=== PATIENT | female | born 1935 | race Two or more races ===

== ENCOUNTER 2017-09-27 10:25 | Outpatient (CLI) | payer OTHER ==
[~2017-09-27 10:25] MED LIST: CLOPIDOGREL BIS75 MG PO; ENALAPRIL MALEAT5 MG PO; GABAPENTIN400 MG PO; GLYCOPYRROLATE2 MG PO; LANSOPRAZOLE30 MG PO; OSTERA TABLET1 EACH PO; TOPROL XL25 M1 PO; ZOCOR40 MG PO; [UNRECOGNIZED DRUG - OTHER] PO
== END 2017-09-27 10:34 | disposition home or self-care (01) ==
LOC: RAD 10:25
DX: R07.89 Other chest pain (principal); M25.561 Pain in right knee; M25.562 Pain in left knee

== ENCOUNTER → 2017-10-13 | Outpatient (CLI) | payer OTHER ==
[~2017-10-13] VITALS: Ht 152.4 cm; Wt 59.0 kg
[~2017-10-13] MED LIST changes: +CALTRATE 600+D1 EAC1 PO; +COZAAR50 MG; +GLUCOSAMI PO; +PLAVIX75 MG PO; +PREVACID15 MG PO; +ROBINUL FORTE2 MG PO
== END | disposition home or self-care (01) ==
LOC: LAB 06:00 → SURH 10-24 07:00 → EDSTATUS 10-24 08:00 → SURH 10-24 08:00
DX: M25.561 Pain in right knee (principal); D64.89 Other specified anemias; D68.8 Other specified coagulation defects; E78.2 Mixed hyperlipidemia; N39.0 Urinary tract infection, site not specified; I10 Essential (primary) hypertension; Z01.810 Encounter for preprocedural cardiovascular examination; Z01.812 Encounter for preprocedural laboratory examination

== ENCOUNTER 2017-10-18 15:33 | Outpatient (CLI) | payer OTHER ==
[~2017-10-18 15:33] MED LIST changes: -COZAAR50 MG
== END 2017-10-18 15:44 | disposition home or self-care (01) ==
LOC: LAB 15:33
DX: N39.0 Urinary tract infection, site not specified (principal); R82.79 Other abnormal findings on microbiological examination of urine

== ENCOUNTER 2017-10-23 16:12 | Inpatient (IN) | payer OTHER ==
[~2017-10-23] VITALS: Ht 152.4 cm; Wt 59.0 kg
[2017-10-23] MEDS ORDERED: COZAAR50 MG (16:38)
== END 2017-10-31 19:25 | disposition home or self-care (01) | DRG 690 ==
LOC: ER 16:12 → MEDJ 21:40 → SEC-K 21:40 → MEDJ 23:48
PROC: 8E0ZXY6 Isolation (ICD-10-PCS; 2017-10-24)
PROC: 02HV33Z Insertion of Infusion Device into Superior Vena Cava, Percutaneous Approach (ICD-10-PCS; principal; 2017-10-28)
DX: N39.0 Urinary tract infection, site not specified (principal); Z88.0 Allergy status to penicillin; I10 Essential (primary) hypertension; E78.4 Other hyperlipidemia; I80.8 Phlebitis and thrombophlebitis of other sites; B96.29 Other Escherichia coli [E. coli] as the cause of diseases classified elsewhere; B96.4 Proteus (mirabilis) (morganii) as the cause of diseases classified elsewhere; Z16.12 Extended spectrum beta lactamase (ESBL) resistance

== ENCOUNTER → 2017-11-15 15:05 | Outpatient (CLI) | payer OTHER ==
[~2017-11-15 15:05] MED LIST changes: +COZAAR50 MG
== END | disposition home or self-care (01) ==
LOC: LAB 15:05
DX: N39.0 Urinary tract infection, site not specified (principal); R82.79 Other abnormal findings on microbiological examination of urine

== ENCOUNTER → 2017-12-01 11:07 | Outpatient (CLI) | payer OTHER | END | disposition home or self-care (01) | LOC: LAB 11:07 | DX: N39.0 Urinary tract infection, site not specified (principal) ==

== ENCOUNTER 2017-12-15 08:15 | Inpatient (IN) | payer OTHER ==
[~2017-12-15] VITALS: Ht 152.4 cm; Wt 59.0 kg
== END 2017-12-29 18:51 | disposition home or self-care (01) | DRG 470 ==
LOC: SURH 12-26 07:00 → SURG 12-26 08:36 → O/R 12-26 08:36 → SURH 12-26 12:45 → SURG 12-26 18:46
PROVIDERS: Orthopaedic Surgery
PROC: 0SRC0J9 Replacement of Right Knee Joint with Synthetic Substitute, Cemented, Open Approach (ICD-10-PCS; principal; 2017-12-26 12:45)
PROC: 30233N1 Transfusion of Nonautologous Red Blood Cells into Peripheral Vein, Percutaneous Approach (ICD-10-PCS; 2017-12-27)
DX: M17.11 Unilateral primary osteoarthritis, right knee (principal); D62 Acute posthemorrhagic anemia; I10 Essential (primary) hypertension; E78.49 Other hyperlipidemia; H40.89 Other specified glaucoma; Z88.0 Allergy status to penicillin; Z88.6 Allergy status to analgesic agent; Z96.642 Presence of left artificial hip joint; Z90.49 Acquired absence of other specified parts of digestive tract

== ENCOUNTER 2017-12-20 11:06 | Outpatient (CLI) | payer OTHER | END 2017-12-20 11:16 | disposition home or self-care (01) | LOC: LAB 11:06 | DX: I10 Essential (primary) hypertension (principal); D68.8 Other specified coagulation defects; E78.2 Mixed hyperlipidemia; N39.0 Urinary tract infection, site not specified; R07.89 Other chest pain ==

== ENCOUNTER 2018-07-31 13:29 | Emergency (ER) | payer OTHER ==
[~2018-07-31] VITALS: Ht 152.4 cm; Wt 51.3 kg
== END 2018-07-31 15:37 | disposition home or self-care (01) ==
LOC: ER 13:29
DX: S30.0XXA Contusion of lower back and pelvis, initial encounter (principal); S80.01XA Contusion of right knee, initial encounter; W18.09XA Striking against other object with subsequent fall, initial encounter; Y93.89 Activity, other specified; Y92.018 Other place in single-family (private) house as the place of occurrence of the external cause; Y99.8 Other external cause status

== ENCOUNTER 2019-01-30 10:05 | Outpatient (CLI) | payer OTHER | END 2019-01-30 10:07 | disposition home or self-care (01) | LOC: TOM 10:05 | DX: C25.0 Malignant neoplasm of head of pancreas (principal) ==

== ENCOUNTER 2019-02-11 13:54 | Outpatient (CLI) | payer OTHER | END 2019-02-11 14:00 | disposition home or self-care (01) | LOC: NUCLEAR 13:54 | DX: I70.218 Atherosclerosis of native arteries of extremities with intermittent claudication, other extremity (principal); I70.213 Atherosclerosis of native arteries of extremities with intermittent claudication, bilateral legs ==

== ENCOUNTER → 2019-03-14 | Outpatient (CLI) | payer OTHER | END | disposition home or self-care (01) | LOC: RAD 12:39 | DX: N20.0 Calculus of kidney (principal) ==

== ENCOUNTER 2019-06-25 19:16 | Emergency (ER) | payer OTHER ==
[~2019-06-25] VITALS: Ht 152.4 cm; Wt 47.6 kg
== END 2019-06-25 23:40 | disposition home or self-care (01) ==
LOC: ER 19:16
DX: K29.60 Other gastritis without bleeding (principal)

== ENCOUNTER → 2019-09-23 09:32 | Outpatient (CLI) | payer OTHER | END | disposition home or self-care (01) | LOC: LAB 09:32 | PROVIDERS: ATTEND General Practice | DX: Z20.828 Contact with and (suspected) exposure to other viral communicable diseases (principal); Z11.59 Encounter for screening for other viral diseases ==

== ENCOUNTER 2020-10-07 14:10 | Emergency (ER) | payer OTHER ==
[~2020-10-07] VITALS: Ht 152.4 cm; Wt 59.0 kg
== END 2020-10-08 14:52 | disposition home or self-care (01) ==
LOC: ER 14:10
DX: K29.60 Other gastritis without bleeding (principal); E86.0 Dehydration; E87.8 Other disorders of electrolyte and fluid balance, not elsewhere classified; R10.84 Generalized abdominal pain; R11.2 Nausea with vomiting, unspecified

== ENCOUNTER 2020-12-29 14:04 | Emergency (ER) | payer OTHER ==
[~2020-12-29] VITALS: Ht 152.4 cm; Wt 53.5 kg
== END 2020-12-29 20:26 | disposition home or self-care (01) ==
LOC: ER 14:04
DX: N39.0 Urinary tract infection, site not specified (principal); R10.84 Generalized abdominal pain

== ENCOUNTER 2021-01-04 13:48 | Outpatient (CLI) | payer OTHER | END 2021-01-04 13:49 | disposition home or self-care (01) | LOC: NUCLEAR 13:48 | PROVIDERS: ATTEND Specialist | DX: M81.0 Age-related osteoporosis without current pathological fracture (principal) ==

== ENCOUNTER 2021-04-15 10:36 | Outpatient (CLI) | payer OTHER | END 2021-04-15 10:43 | disposition home or self-care (01) | LOC: TOM 10:36 | PROVIDERS: ATTEND Specialist | DX: C25.3 Malignant neoplasm of pancreatic duct (principal) ==

== ENCOUNTER 2021-07-14 09:42 | Outpatient (CLI) | payer OTHER | END 2021-07-14 09:53 | disposition home or self-care (01) | LOC: MAMO-SONO 09:42 | PROVIDERS: ATTEND Obstetrics & Gynecology | DX: N64.4 Mastodynia (principal) ==

== ENCOUNTER 2022-02-14 07:06 | Outpatient (CLI) | payer OTHER | END 2022-02-14 07:13 | disposition home or self-care (01) | LOC: TOM 07:06 | DX: R10.13 Epigastric pain (principal); R63.4 Abnormal weight loss | CPT/HCPCS: 74178; Q9965 ==

== ENCOUNTER 2022-03-21 14:29 | Emergency (ER) | payer OTHER ==
[~2022-03-21] VITALS: Ht 152.4 cm; Wt 47.6 kg
[2022-03-21] MEDS ORDERED: PEPCID AC20 MG PO (22:05)
[2022-03-21] MEDS ORDERED: LEVSIN/SL0.125 MG SL (22:05)
== END 2022-03-21 22:22 | disposition home or self-care (01) ==
LOC: ER 14:29
DX: R10.9 Unspecified abdominal pain (principal); Z88.0 Allergy status to penicillin; Z88.6 Allergy status to analgesic agent; Z88.2 Allergy status to sulfonamides; Z86.79 Personal history of other diseases of the circulatory system; Z98.890 Other specified postprocedural states

== ENCOUNTER 2022-08-26 09:52 | Outpatient (CLI) | payer OTHER ==
[~2022-08-26 09:52] MED LIST changes: +LEVSIN/SL0.125 MG SL; +PEPCID AC20 MG PO
== END 2022-08-26 09:56 | disposition home or self-care (01) ==
LOC: RAD 09:52
PROVIDERS: ATTEND Specialist
DX: J45.41 Moderate persistent asthma with (acute) exacerbation (principal)

== ENCOUNTER 2022-09-02 13:13 | Emergency (ER) | payer OTHER ==
[~2022-09-02] VITALS: Ht 152.4 cm; Wt 48.5 kg
[2022-09-02] MEDS ORDERED: CIPRO500 MG PO (22:09)
== END 2022-09-02 22:46 | disposition home or self-care (01) ==
LOC: ER 13:13
DX: N39.0 Urinary tract infection, site not specified (principal); I10 Essential (primary) hypertension

== ENCOUNTER 2022-09-07 12:46 | Emergency (ER) | payer OTHER ==
[~2022-09-07] VITALS: Ht 152.4 cm; Wt 40.8 kg
[~2022-09-07 12:46] MED LIST changes: +CIPRO500 MG PO
[2022-09-07] MEDS ORDERED: PROTONIX40 MG PO (13:10)
[2022-09-07] MEDS ORDERED: ZOFRAN8 MG PO (19:23)
[2022-09-07] MEDS ORDERED: PEPCID20 MG PO (19:23)
== END 2022-09-07 19:38 | disposition home or self-care (01) ==
LOC: ER 12:46
DX: K29.70 Gastritis, unspecified, without bleeding (principal); K21.9 Gastro-esophageal reflux disease without esophagitis; I11.9 Hypertensive heart disease without heart failure; Z88.0 Allergy status to penicillin; Z88.2 Allergy status to sulfonamides

== ENCOUNTER 2022-12-05 10:06 | Outpatient (CLI) | payer OTHER ==
[~2022-12-05 10:06] MED LIST changes: +PEPCID20 MG PO; +PROTONIX40 MG PO; +ZOFRAN8 MG PO
== END 2022-12-05 10:11 | disposition home or self-care (01) ==
LOC: RAD 10:06
DX: M17.12 Unilateral primary osteoarthritis, left knee (principal); M25.561 Pain in right knee; M25.562 Pain in left knee; S83.91XA Sprain of unspecified site of right knee, initial encounter; Z96.651 Presence of right artificial knee joint

== ENCOUNTER 2023-11-01 16:49 | Emergency (ER) | payer OTHER ==
[~2023-11-01] VITALS: Ht 152.4 cm; Wt 44.9 kg
[2023-11-01] MEDS ORDERED: TAMSULOSIN HCL 0.4 MG CAP PO ONE ×2 (18:13→18:15)
[2023-11-01] MEDS ORDERED: KETOROLAC TROMETHAMINE 30 MG VIAL ONE (18:14)
[2023-11-01] MEDS ORDERED: CIPROFLOXACIN HCL 500 MG TABLET PO ONE (18:15)
[2023-11-01] MEDS ORDERED: KETOROLAC TROMETHAMINE 30 MG VIAL IM ONE (18:15)
[2023-11-01 18:31] LABS: PH,URINE 5.5 (5.0-8.0); URINE APPEARANCE Clear; URINE BILIRRUBIN Negative (NEGATIVE); URINE BLOOD Negative; URINE COLOR Dark Yellow; URINE GLUCOSE Negative (NEGATIVE); URINE KETONE Trace (NEGATIVE); URINE LEUKOCYTE Small; URINE NITRATE Negative; URINE PROTEIN 30 (NEGATIVE); URINE UROBILINOGEN 0.2 E.U./dl
[2023-11-01 18:32] LABS: URINE BACTERIA 197.8 uL (0.0-1933); URINE EPITHELIAL CELLS 25.8 uL (0.0-38.8); URINE RBC 4.1 uL (0.0-20.8); URINE WBC 14.3 uL (0.0-23.2)
[2023-11-01 18:33] LABS: HEMATOCRIT 33.6 % (36.0-45.00); HEMOGLOBIN 11.3 g/dL (12.0-15.00); MEAN CELL VOLUME 85.5 fL (80.00-100.00); MEAN CORPUSCULAR HEMOGLOBIN 28.8 pg (27.00-32.0); MEAN CORPUSCULAR HGB CONC 33.7 g/dl (32.0-36.0); PLATELET COUNT 236 K/uL (150-450); RED BLOOD COUNT 3.93 M/uL (4.00-6.00); RED CELL DISTRIBUTION WIDTH 14.5 % (11.5-14.5)
[2023-11-01 18:38] LABS: URINE CAST 1.22 uL (0.0-1.40)
[2023-11-01] MEDS ORDERED: PYRIDIUM DS200 MG PO (19:03)
[2023-11-01] MEDS ORDERED: CIPROFLOXA250 MG/5 M PO (19:03)
== END 2023-11-01 19:55 | disposition home or self-care (01) ==
LOC: ER 16:50
PROVIDERS: General Practice
DX: R32 Unspecified urinary incontinence (principal); I10 Essential (primary) hypertension; Z88.0 Allergy status to penicillin; Z88.2 Allergy status to sulfonamides

== ENCOUNTER 2024-02-06 13:51 | Emergency (ER) | payer OTHER ==
[~2024-02-06] VITALS: Ht 165.1 cm; Wt 44.9 kg
[~2024-02-06 13:51] MED LIST changes: +CIPROFLOXA250 MG/5 M PO; +PYRIDIUM DS200 MG PO
[2024-02-06] MEDS ORDERED: KETOROLAC TROMETHAMINE 30 MG VIAL IM STA (16:26)
[2024-02-06] MEDS ORDERED: ORPHENADRINE CITRATE 30 MG/ML AMPUL IM STA (16:27)
[2024-02-06] MEDS ORDERED: ZANAFLEX4 M1 PO (18:57)
[2024-02-06] MEDS ORDERED: NAPROXEN500 MG PO (18:57)
== END 2024-02-06 20:30 | disposition home or self-care (01) ==
LOC: ER 13:53
DX: S79.812A Other specified injuries of left hip, initial encounter (principal); W06.XXXA Fall from bed, initial encounter; Y93.89 Activity, other specified; Y92.013 Bedroom of single-family (private) house as the place of occurrence of the external cause; S89.82XA Other specified injuries of left lower leg, initial encounter; Z88.0 Allergy status to penicillin; Z88.2 Allergy status to sulfonamides; I10 Essential (primary) hypertension; E78.00 Pure hypercholesterolemia, unspecified; M54.50 Low back pain, unspecified; M17.12 Unilateral primary osteoarthritis, left knee
CPT/HCPCS: 73502; 73560; 96372; 99283; J1885; J2360

== ENCOUNTER 2024-05-26 15:03 | Emergency (ER) | payer OTHER ==
[~2024-05-26] VITALS: Ht 152.4 cm; Wt 38.6 kg
[~2024-05-26 15:03] MED LIST changes: +MACROBID 100 M100 MG PO; +NAPROXEN500 MG PO; +ZANAFLEX4 M1 PO
[2024-05-26] MEDS ORDERED: FLUCONAZOLE150 MG PO (17:59)
[2024-05-26] MEDS ORDERED: CLOTRIMAZOLE-321 GM VAG (17:59)
[2024-05-26] MEDS ORDERED: PYRIDIUM200 MG PO (17:59)
== END 2024-05-26 17:59 | disposition home or self-care (01) ==
LOC: ER 15:04
DX: B37.31 Acute candidiasis of vulva and vagina (principal); R30.0 Dysuria; I10 Essential (primary) hypertension; Z88.0 Allergy status to penicillin; Z88.2 Allergy status to sulfonamides

== ENCOUNTER 2024-06-19 15:39 | Inpatient (IN) | payer OTHER ==
[~2024-06-19] VITALS: Ht 152.4 cm; Wt 37.2 kg
[~2024-06-19 15:39] MED LIST changes: +CLOTRIMAZOLE-321 GM VAG; +FLUCONAZOLE150 MG PO; +PYRIDIUM200 MG PO
[2024-06-19] MEDS ORDERED: AZITHROMYCIN 500 MG VIAL IV SCH (16:53)
[2024-06-19] MEDS ORDERED: METHYLPREDNISOLONE SOD SUCC 125 MG VIAL IV ONE (17:00)
[2024-06-19] MEDS ORDERED: 0.9 % SODIUM CHLORIDE 1,000 ML IV SCH ×2 (17:00→19:15)
[2024-06-19] MEDS ORDERED: LEVALBUTEROL HCL 1.25 MG/3 ML SOLUTION IH SCH (17:00)
[2024-06-19] MEDS ORDERED: GUAIFENESIN/DEXTROMETHORPHAN 100MG/10ML BLIST.PACK PO ONE ×2 (17:00→17:19)
[2024-06-19] MEDS ORDERED: METHYLPREDNISOLONE SOD SUCC 125 MG VIAL ONE (17:19)
[2024-06-19] MEDS ORDERED: AZITHROMYCIN 500 MG VIAL IV ONE (17:19)
[2024-06-19] MEDS ORDERED: LEVALBUTEROL HCL 1.25 MG/3 ML SOLUTION IH ONE (17:25)
[2024-06-19 18:01] LABS: HEMOGLOBIN 13.7 g/dL (12.0-15.00); MEAN CELL VOLUME 85.2 fL (80.00-100.00); MEAN CORPUSCULAR HEMOGLOBIN 28.4 pg (27.00-32.0); MEAN CORPUSCULAR HGB CONC 33.4 g/dl (32.0-36.0); PLATELET COUNT 252 K/uL (150-450); RED BLOOD COUNT 4.81 M/uL (4.00-6.00)
[2024-06-19 18:14] LABS: INFLUENZA A AG NEGATIVE (NEGATIVE)
[2024-06-19 18:18] LABS: COVID-19 AG POSITIVE (NEGATIVE)
[2024-06-19 18:30] LABS: BILIRUBIN TOTAL 0.54 mg/dL (0.3-1.2); CALCIUM 9.9 mg/dL (8.5-10.1); GFR 52.32; GLOBULINA 5.6 G/DL (2.4-3.5); POTASSIUM 4.04 mEq/L (3.5-5.1); TOTAL PROTEIN 9.6 gm/dL (6.4-8.2)
[2024-06-19 18:48] LABS: ABG PH 7.438 (7.35-7.45); ABG pCO2 38.1 mmHg (35-45); BASE EXCESS 1.2 mmol/l; BICARBONATE 25.2 mmol/l (23-25); SaO2 87.5 %; Tco2 26.4 mmol/l; o2 21 %
[2024-06-19 18:49] LABS: allen test SATISFACTORY; mode ROOM AIR; puncture site BRADIAL RIGHT
[2024-06-19 18:50] LABS: ABG PO2 51.2 mmHg (80-100)
[2024-06-19] MEDS ORDERED: DEXAMETHASONE SODIUM PHOSPHATE 4 MG/ML VIAL IV SCH (19:16)
[2024-06-19] MEDS ORDERED: ZINC SULFATE 220 MG CAPSULE PO SCH (19:16)
[2024-06-19] MEDS ORDERED: ENOXAPARIN SODIUM 40 MG/0.4 ML SYRINGE SUBCUTANEO SCH (19:16)
[2024-06-19] MEDS ORDERED: ASCORBIC ACID 500 MG TABLET PO SCH (19:16)
[2024-06-19] MEDS ORDERED: MELATONIN 5 MG TABLET PO SCH (21:00)
[2024-06-20] MEDS ORDERED: ENOXAPARIN SODIUM 40 MG/0.4 ML SYRINGE SUBCUTANEO ONE (02:05)
[2024-06-20] MEDS ORDERED: DEXAMETHASONE SODIUM PHOSPHATE 4 MG/ML VIAL ONE (02:05)
[2024-06-20 06:59] LABS: HEMATOCRIT 32.7 % (36.0-45.00); MEAN CORPUSCULAR HEMOGLOBIN 29.1 pg (27.00-32.0); MEAN CORPUSCULAR HGB CONC 33.8 g/dl (32.0-36.0); PLATELET COUNT 219 K/uL (150-450); RED CELL DISTRIBUTION WIDTH 18.9 % (11.5-14.5)
[2024-06-20 07:09] LABS: ERYTHROCYTE SEDIMENTATION RATE 86 mm/hr
[2024-06-20 07:54] LABS: ALBUMIN 3.2 gm/dL (3.4-5.0); BILIRUBIN TOTAL 0.36 mg/dL (0.3-1.2); CALCIUM 8.8 mg/dL (8.5-10.1); CREATININE SERUM 1.25 mg/dL (0.55-1.02); GFR 40.45; GLOBULINA 3.5 G/DL (2.4-3.5); MAGNESIUM 2.2 mg/dL (1.8-2.4); PHOSPHOROUS 3.5 mg/dL (2.5-4.9); TOTAL PROTEIN 6.7 gm/dL (6.4-8.2)
[2024-06-20 08:00] LABS: TSH 0.347 uIU/mL (0.358-3.74)
[2024-06-20] MEDS ORDERED: GUAIFENESIN 600 MG TABLET.SA PO SCH (11:15)
[2024-06-20] MEDS ORDERED: BENZONATATE 100 MG CAPSULE PO SCH (11:30)
[2024-06-20 16:18] VITALS: BP 122/83; O2SAT 98
[2024-06-20] MEDS ORDERED: BENZONATATE 100 MG CAPSULE PO ONE (20:50)
[2024-06-20] MEDS ORDERED: CEFTRIAXONE SODIUM 2,000 MG VIAL IV SCH (21:00)
[2024-06-20 21:51] LABS: PH,URINE 5.5 (5.0-8.0); URINE APPEARANCE Clear; URINE BILIRRUBIN Negative (NEGATIVE); URINE BLOOD Negative; URINE COLOR Yellow; URINE GLUCOSE Negative (NEGATIVE); URINE KETONE Negative (NEGATIVE); URINE LEUKOCYTE Negative; URINE NITRATE Negative; URINE PROTEIN Trace (NEGATIVE); URINE UROBILINOGEN 0.2 E.U./dl
[2024-06-20 21:52] LABS: URINE BACTERIA 37.9 uL (0.0-1933); URINE CAST 3.68 uL (0.0-1.40); URINE EPITHELIAL CELLS 9.4 uL (0.0-38.8); URINE RBC 10.1 uL (0.0-20.8); URINE WBC 2.5 uL (0.0-23.2)
[2024-06-20 22:35] VITALS: BP 104/46
[2024-06-21] VITALS (9 sets, daily range): BP systolic 118–139; BP diastolic 53–70; O2SAT 90–97
[2024-06-21 06:48] LABS: HEMATOCRIT 32.4 % (36.0-45.00); HEMOGLOBIN 10.9 g/dL (12.0-15.00); MEAN CORPUSCULAR HEMOGLOBIN 28.5 pg (27.00-32.0); MEAN CORPUSCULAR HGB CONC 33.5 g/dl (32.0-36.0); PLATELET COUNT 219 K/uL (150-450); RED BLOOD COUNT 3.81 M/uL (4.00-6.00); RED CELL DISTRIBUTION WIDTH 19.3 % (11.5-14.5)
[2024-06-21 07:45] LABS: ALBUMIN 3.3 gm/dL (3.4-5.0); BILIRUBIN TOTAL 0.28 mg/dL (0.3-1.2); CALCIUM 9.2 mg/dL (8.5-10.1); CREATININE SERUM 1.06 mg/dL (0.55-1.02); FERRITIN 68.3 NG/ML (8-252); GFR 48.92; POTASSIUM 4.67 mEq/L (3.5-5.1); TOTAL PROTEIN 7.3 gm/dL (6.4-8.2)
[2024-06-21 07:46] LABS: C-REACTIVE PROTEIN 10.2 MG/DL (0.00-0.29)
[2024-06-21] MEDS ORDERED: AZITHROMYCIN 500 MG VIAL IV ONE (08:23)
[2024-06-22] VITALS (9 sets, daily range): BP systolic 139–160; BP diastolic 59–66; O2SAT 90–98
[2024-06-22] MEDS ORDERED: AZITHROMYCIN 500 MG VIAL IV ONE (08:48)
[2024-06-22] MEDS ORDERED: LORATADINE 10 MG TABLET PO SCH (21:00)
[2024-06-22] MEDS ORDERED: FLUTICASONE PROPIONATE 50 MCG SPRAY NASAL SCH (21:00)
[2024-06-22] MEDS ORDERED: LORATADINE 10 MG TABLET PO ONE (21:00)
[2024-06-23] VITALS (9 sets, daily range): BP systolic 133–158; BP diastolic 59–65; O2SAT 90–99
[2024-06-23] MEDS ORDERED: AZITHROMYCIN 500 MG VIAL IV ONE (08:08)
[2024-06-23 08:32] LABS: FERRITIN 65.5 NG/ML (8-252)
[2024-06-23 09:02] LABS: C-REACTIVE PROTEIN 7.23 MG/DL (0.00-0.29)
[2024-06-24] VITALS (9 sets, daily range): BP systolic 156–170; BP diastolic 69–79; O2SAT 99–100
[2024-06-24] MEDS ORDERED: AZITHROMYCIN 500 MG VIAL IV ONE (08:36)
[2024-06-24] MEDS ORDERED: FLUTICASONE PROPIONATE 50 MCG SPRAY NASAL SCH (09:00)
[2024-06-24] MEDS ORDERED: levoFLOXacin IN DEXTROSE 5 % 150 ML IV SCH (16:00)
[2024-06-25] VITALS (7 sets, daily range): BP systolic 157–167; BP diastolic 70–78; O2SAT 94–100
[2024-06-25 06:51] LABS: FERRITIN 108.8 NG/ML (8-252)
[2024-06-25 06:52] LABS: C-REACTIVE PROTEIN 5.35 MG/DL (0.00-0.29)
[2024-06-25 15:58] LABS: ABG PH 7.508 (7.35-7.45); ABG PO2 79.4 mmHg (80-100); ABG pCO2 30.9 mmHg (35-45); BASE EXCESS 1.8 mmol/l; SaO2 96.9 %; Tco2 24.9 mmol/l
[2024-06-25] MEDS ORDERED: LORATADINE10 MG PO (16:05)
[2024-06-25] MEDS ORDERED: MEMANTINE HCL10 MG PO (16:05)
[2024-06-25] MEDS ORDERED: VASOTEC5 MG PO (16:05)
[2024-06-25] MEDS ORDERED: FLUCONAZOLE100 MG PO (16:05)
[2024-06-25] MEDS ORDERED: FLONASE16 GM NASAL (16:05)
[2024-06-25] MEDS ORDERED: PEPCID20 MG PO (16:05)
[2024-06-25] MEDS ORDERED: MUCINEX600 MG PO (16:05)
[2024-06-25] MEDS ORDERED: LOSARTAN POTASS50 MG PO (16:05)
[2024-06-25] MEDS ORDERED: GABAPENTIN400 MG PO (16:05)
[2024-06-25] MEDS ORDERED: MEDROLPACK PO (16:05)
[2024-06-25] MEDS ORDERED: CYMBALTA60 MG PO (16:05)
[2024-06-25] MEDS ORDERED: LEVOFLOXACIN750 MG PO (16:05)
[2024-06-25] MEDS ORDERED: ZINC SULFATE50 M1 PO (16:05)
[2024-06-25] MEDS ORDERED: VITAMIN C500 M1 PO (16:05)
[2024-06-25] MEDS ORDERED: BENZONATATE100 MG PO (16:05)
[2024-06-25 16:19] LABS: allen test SATISFACTORY; mode ROOM AIR; o2 21 %; puncture site RADIAL RIGHT
[2024-06-25] MEDS ORDERED: FLUCONAZOLE IN NACL,ISO-OSM 200 MG/100 ML PIGGYBAG IV NR (17:00)
[2024-06-26] MEDS ORDERED: FLUCONAZOLE IN NACL,ISO-OSM 2 MG/ML ML IV SCH (17:00)
== END 2024-06-25 16:55 | disposition home or self-care (01) | DRG 179 ==
LOC: ER 15:39 → SEC-K 19:45 → SURG 06-20 01:58 → SEC-K 06-20 02:25 → MEDJ 06-20 18:42
PROVIDERS: General Practice; Internal Medicine Geriatric Medicine; Internal Medicine Infectious Disease; ADMIT Specialist; ATTEND Specialist
PROC: BW24ZZZ Computerized Tomography (CT Scan) of Chest and Abdomen (ICD-10-PCS; 2024-06-19)
PROC: 8E0ZXY6 Isolation (ICD-10-PCS; 2024-06-19)
PROC: 4A12X4Z Monitoring of Cardiac Electrical Activity, External Approach (ICD-10-PCS; principal; 2024-06-21)
DX: U07.1 COVID-19 (principal); I10 Essential (primary) hypertension; E78.5 Hyperlipidemia, unspecified; A49.8 Other bacterial infections of unspecified site

== ENCOUNTER 2024-11-28 12:27 | Inpatient (IN) | payer OTHER ==
[~2024-11-28] VITALS: Ht 152.4 cm; Wt 39.0 kg
[~2024-11-28 12:27] MED LIST changes: +BENZONATATE100 MG PO; +CYMBALTA60 MG PO; +FLONASE16 GM NASAL; +FLUCONAZOLE100 MG PO; +LEVOFLOXACIN750 MG PO; +LORATADINE10 MG PO; +LOSARTAN POTASS50 MG PO; +MEDROLPACK PO; +MEMANTINE HCL10 MG PO; +MUCINEX600 MG PO; +VASOTEC5 MG PO; +VITAMIN C500 M1 PO; +ZINC SULFATE50 M1 PO
--- NOTE | 2024-11-28 13:05 | NUR ---
SE RECIBE PTE EN AMBULANCIA ALERTA Y ORIENTADA X3, REFIERE SE RESBALO EN [place] EN EL [place] DE [place] Y AHORA TIENE DOLOR EN TODO EL CUERPO. SE MILAGROS SV Y SE UBICA.
[2024-11-28] MEDS ORDERED: ACETAMINOPHEN 500 MG GEL..CAP PO ONE ×2 (15:15→15:17)
[2024-11-28] MEDS ORDERED: 0.9 % SODIUM CHLORIDE 500 ML IV ONE (16:45)
[2024-11-28 17:29] LABS: BASO % 0.1 % (0.1-1.2); EOS # 0.01 (0.04-0.54); EOS % 0.1 % (0.7-7.0); LYMPH # 0.78 (1.18-3.74); LYMPH % 9.6 % (19.3-53.1); MEAN PLATELET VOLUME 10.10 fl (9.4-12.4); MONO # 0.48 (0.24-0.82); MONO % 5.9 % (4.7-12.5); NEUT # 6.85 (1.56-6.13); NEUT % 83.9 % (34.0-71.1); RED CELL DISTRIBUTION WIDTH 13.9 % (11.6-14.4)
[2024-11-28 17:53] LABS: INR 0.99
[2024-11-28 18:03] LABS: URINE APPEARANCE Clear; URINE BILIRRUBIN Negative (NEGATIVE); URINE BLOOD Negative; URINE COLOR Yellow; URINE KETONE Negative (NEGATIVE); URINE LEUKOCYTE Negative; URINE NITRATE Negative; URINE PROTEIN 30 (NEGATIVE); URINE UROBILINOGEN 0.2 E.U./dl
[2024-11-28 18:04] LABS: URINE BACTERIA 10.7 uL (0.0-1933); URINE EPITHELIAL CELLS 7.5 uL (0.0-38.8); URINE RBC 11.5 uL (0.0-20.8); URINE WBC 20.6 uL (0.0-23.2)
[2024-11-28 18:11] LABS: URINE CAST 0.58 uL (0.0-1.40); URINE GLUCOSE 250 MG/DL (NEGATIVE)
[2024-11-28 18:43] LABS: BUN CREA RATIO 17.0 (7.0-25.0); CREATININE SERUM 0.7 mg/dL (0.55-1.02); GFR 78.79; GLUCOSE FASTING 150.0 mg/dL (65-100); OSMOLALITY SERUM 286.0 MOSM/KG (275-295)
[2024-11-28 18:44] LABS: AST/SGOT 13.0 U/L (15-37); BILIRUBIN TOTAL 0.47 mg/dL (0.3-1.2); GLOBULINA 4.0 G/DL (2.4-3.5)
[2024-11-28 18:45] LABS: ALT/SGPT 12.0 U/L (12-78)
[2024-11-28] MEDS ORDERED: ENOXAPARIN SODIUM 40 MG/0.4 ML SYRINGE SUBCUTANEO ONE (20:15)
[2024-11-28] MEDS ORDERED: ACETAMINOPHEN 325 MG TABLET PO PRN (20:15)
[2024-11-28] MEDS ORDERED: CEFAZOLIN SODIUM 1,000 MG in DEXTROSE 5 % IN WATER 50 ML IV SCH (20:19)
[2024-11-28] MEDS ORDERED: METOPROLOL TARTRATE 25 MG TABLET PO SCH (20:20)
[2024-11-28] MEDS ORDERED: ATORVASTATIN CALCIUM 40 MG TABLET PO SCH (20:21)
[2024-11-28] MEDS ORDERED: ENALAPRILAT DIHYDRATE 1.25 MG/ML VIAL IV PRN (20:30)
[2024-11-28] MEDS ORDERED: RINGERS SOLUTION,LACTATED 1,000 ML IV SCH (20:30)
[2024-11-28] MEDS ORDERED: MORPHINE SULFATE 4 MG/ML CARTRIDGE IV PRN (20:30)
[2024-11-28] MEDS ORDERED: FAMOTIDINE/PF 20 MG in 0.9 % SODIUM CHLORIDE 8 ML IV PUSH SCH (21:00)
[2024-11-29 00:22] VITALS: BP 212/76; O2SAT 98
[2024-11-29 02:02] LABS: COVID-19 AG NEGATIVE (NEGATIVE)
[2024-11-29 06:00] VITALS: BP 175/77; O2SAT 97
[2024-11-29 08:07] VITALS: BP 162/79; O2SAT 95
[2024-11-29] MEDS ORDERED: ENOXAPARIN SODIUM 40 MG/0.4 ML SYRINGE SUBCUTANEO SCH (12:00)
[2024-11-29] MEDS ORDERED: MULTIVIT-MIN/IRON FUM/FOLIC AC 1 TAB TABLET PO SCH (12:00)
[2024-11-29] MEDS ORDERED: IRON FUM,PS/FOLIC/BCOMP,C NO.9 1 CAP CAPSULE PO SCH (12:00)
[2024-11-29 16:00] VITALS: BP 182/65; O2SAT 95
[2024-11-29] MEDS ORDERED: AMINO ACIDS 1 EACH TABLET PO SCH (17:00)
[2024-11-30] VITALS: BP 132/71; O2SAT 96
[2024-11-30 08:00] VITALS: BP 134/72; O2SAT 98
[2024-11-30] MEDS ORDERED: HALOPERIDOL LACTATE 5 MG/ML AMPUL IM PRN (12:45)
[2024-11-30 16:00] VITALS: BP 180/73; O2SAT 96
[2024-11-30] MEDS ORDERED: CLONAZEPAM 0.5 MG TABLET PO SCH (21:00)
[2024-11-30] MEDS ORDERED: CIPROFLOXACIN IN 5 % DEXTROSE 200 ML IV SCH (21:44)
[2024-11-30] MEDS ORDERED: CHLORHEXIDINE GLUCONATE 15ML BRUSH KIT MM ONE (22:00)
[2024-11-30] MEDS ORDERED: MUPIROCIN 22 GM OINT..GM TUBE NASAL ONE (22:00)
[2024-11-30] MEDS ORDERED: CHLORHEXIDINE GLUCONATE 120 ML BOTTLE TOP ONE (22:00)
[2024-12-01] VITALS: BP 150/75; O2SAT 97
[2024-12-01 06:00] LABS: BASO % 0.3 % (0.1-1.2); EOS # 0.31 (0.04-0.54); EOS % 5.3 % (0.7-7.0); LYMPH # 0.74 (1.18-3.74); LYMPH % 12.7 % (19.3-53.1); MEAN PLATELET VOLUME 10.00 fl (9.4-12.4); MONO # 0.46 (0.24-0.82); MONO % 7.9 % (4.7-12.5); NEUT # 4.30 (1.56-6.13); NEUT % 73.6 % (34.0-71.1); RED CELL DISTRIBUTION WIDTH 13.4 % (11.6-14.4)
[2024-12-01 08:15] VITALS: BP 141/71; O2SAT 96
[2024-12-01 16:00] VITALS: BP 117/50; O2SAT 98
[2024-12-02] VITALS: BP 120/70; O2SAT 96
[2024-12-02 07:00] VITALS: BP 134/72; O2SAT 92
[2024-12-02] MEDS ORDERED: AMLODIPINE BESYLATE 5 MG TABLET PO SCH (09:00)
[2024-12-02] MEDS ORDERED: TRANEXAMIC ACID 100MG/1ML (1000MG) AMPUL ONE (15:47)
[2024-12-02] MEDS ORDERED: BUPIVACAINE HCL/MPF 0.5% 30ML VIAL ONE (15:47)
[2024-12-02] MEDS ORDERED: LIDOCAINE HCL 1%/EPINEPHRINE 20ML VIAL IJ ONE (15:48)
[2024-12-02] MEDS ORDERED: VANCOMYCIN HCL 1,000 MG VIAL ONE (15:48)
[2024-12-02] MEDS ORDERED: ISOPROPYL ALCOHOL 30 ML OUNCE TOP ONE (15:48)
[2024-12-02 17:58] LABS: BASO % 0.3 % (0.1-1.2); EOS # 0.11 (0.04-0.54); EOS % 1.3 % (0.7-7.0); LYMPH # 0.48 (1.18-3.74); LYMPH % 5.5 % (19.3-53.1); MEAN PLATELET VOLUME 10.00 fl (9.4-12.4); MONO # 0.27 (0.24-0.82); MONO % 3.1 % (4.7-12.5); NEUT # 7.88 (1.56-6.13); NEUT % 89.6 % (34.0-71.1); RED CELL DISTRIBUTION WIDTH 14.1 % (11.6-14.4)
[2024-12-02] MEDS ORDERED: SUGAMMADEX SODIUM 200 MG/2 ML VIAL IV ONE (18:10)
[2024-12-02] MEDS ORDERED: SODIUM CHLORIDE 0.45 % 1,000 ML IV SCH (18:45)
[2024-12-02] MEDS ORDERED: PROMETHAZINE HCL 50 MG/ML AMPUL IM PRN (18:45)
[2024-12-02] MEDS ORDERED: ONDANSETRON 4 MG TAB.RAPDIS PO PRN (18:45)
[2024-12-02] MEDS ORDERED: TRAMADOL HCL 50 MG TABLET PO PRN (18:45)
[2024-12-02] MEDS ORDERED: ONDANSETRON HCL 2 MG/ML VIAL IV PRN (18:45)
[2024-12-02] MEDS ORDERED: hydrALAZINE HCL 20 MG VIAL ONE (19:30)
[2024-12-02 21:15] VITALS: BP 107/57; O2SAT 97
[2024-12-03 01:14] VITALS: BP 100/63; O2SAT 98
[2024-12-03 01:36] VITALS: BP 100/62
[2024-12-03] MEDS ORDERED: MORPHINE SULFATE 2 MG/ML SYRINGE IV PRN (03:15)
[2024-12-03 05:44] VITALS: BP 94/56; O2SAT 99
[2024-12-03 06:19] LABS: BASO % 0.4 % (0.1-1.2); EOS # 0.03 (0.04-0.54); EOS % 0.4 % (0.7-7.0); LYMPH # 0.45 (1.18-3.74); LYMPH % 5.8 % (19.3-53.1); MEAN PLATELET VOLUME 10.40 fl (9.4-12.4); MONO # 0.48 (0.24-0.82); MONO % 6.2 % (4.7-12.5); NEUT # 6.75 (1.56-6.13); NEUT % 86.8 % (34.0-71.1); RED CELL DISTRIBUTION WIDTH 14.8 % (11.6-14.4)
[2024-12-03 07:08] LABS: BUN CREA RATIO 18.0 (7.0-25.0); CREATININE SERUM 0.82 mg/dL (0.55-1.02); GFR 65.64; GLUCOSE FASTING 150.0 mg/dL (65-100); OSMOLALITY SERUM 287.0 MOSM/KG (275-295)
[2024-12-03 07:30] VITALS: BP 119/65; O2SAT 95
[2024-12-03] MEDS ORDERED: RIVAROXABAN 10 MG TAB PO SCH (09:00)
[2024-12-03] MEDS ORDERED: PANTOPRAZOLE SODIUM 40 MG TABLET.DR PO SCH (09:00)
[2024-12-03] MEDS ORDERED: POTASSIUM CHLORIDE IN WATER 100 ML IV SCH (13:00)
[2024-12-03 16:58] VITALS: BP 105/63
[2024-12-04 01:07] VITALS: BP 111/65; O2SAT 97
[2024-12-04 07:05] VITALS: BP 138/73
[2024-12-04 07:55] LABS: BUN CREA RATIO 25.0 (7.0-25.0); CREATININE SERUM 0.57 mg/dL (0.55-1.02); GFR 99.87; GLUCOSE FASTING 133.0 mg/dL (65-100); OSMOLALITY SERUM 284.0 MOSM/KG (275-295)
[2024-12-04] MEDS ORDERED: POTASSIUM CHLORIDE 10 MEQ CAPSULE PO NR (10:00)
[2024-12-04 12:08] LABS: ABG PH 7.441 (7.35-7.45); ABG PO2 74.9 mmHg (80-100); BICARBONATE 22.2 mmol/l (23-25); o2 21 %
[2024-12-04 15:05] VITALS: BP 124/74; O2SAT 98
== END 2024-12-04 16:55 | disposition home or self-care (01) | DRG 522 ==
LOC: ER 12:27 → SURG 20:36
PROVIDERS: General Practice; Orthopaedic Surgery; Student in an Organized Health Care Education/Training Program; ADMIT Internal Medicine; ATTEND Internal Medicine
PROC: BQ20ZZZ Computerized Tomography (CT Scan) of Right Hip (ICD-10-PCS; 2024-11-28)
PROC: 0QR40JZ Replacement of Right Acetabulum with Synthetic Substitute, Open Approach (ICD-10-PCS; 2024-12-02)
PROC: 30233N1 Transfusion of Nonautologous Red Blood Cells into Peripheral Vein, Percutaneous Approach (ICD-10-PCS; 2024-12-02)
PROC: 0SRR01Z Replacement of Right Hip Joint, Femoral Surface with Metal Synthetic Substitute, Open Approach (ICD-10-PCS; principal; 2024-12-02 16:30)
PROC: 4A033R1 Measurement of Arterial Saturation, Peripheral, Percutaneous Approach (ICD-10-PCS; 2024-12-04)
DX: S72.141A Displaced intertrochanteric fracture of right femur, initial encounter for closed fracture (principal); D62 Acute posthemorrhagic anemia; W18.30XA Fall on same level, unspecified, initial encounter; Y93.9 Activity, unspecified; Y92.9 Unspecified place or not applicable; Y99.9 Unspecified external cause status; Z96.641 Presence of right artificial hip joint; Z96.651 Presence of right artificial knee joint; Z95.828 Presence of other vascular implants and grafts

== ENCOUNTER 2024-12-25 10:56 | Outpatient (CLI) | payer OTHER | END 2024-12-25 10:59 | disposition home or self-care (01) | LOC: RAD 10:56 | PROVIDERS: ATTEND Orthopaedic Surgery | DX: M25.551 Pain in right hip (principal) ==